=== PATIENT | female | born 1985 ===

== ENCOUNTER 2017-08-18 14:24 | Emergency (ER) | payer OTHER ==
[2017-08-18 14:24] VITALS: BMI 39.2
[2017-08-18 14:40] VITALS: O2SAT 99
[2017-08-18] MEDS ORDERED: Amoxicillin-Clav 875-125 mg Tab PO STA (15:31)
[2017-08-18] MEDS ORDERED: Tobramycin/Dexamethasone (Tobradex) Opth Sol (2.5 ml) OU STA (15:31)
[2017-08-18] MEDS ORDERED: Amoxicillin-Clav 875-125 mg Tab PO ONE (15:57)
--- NOTE | 2017-08-18 16:06 | C.PDOC ---
History Of Present Illness A 32 year old female, who denies any significant past medical history, presents to the emergency department for itchy, burning bilateral eyelids, which began 1 month ago. The patient says she has associated symptoms, which include runny nose and facial pressure. The patient denies any chest pain, shortness of breath , headaches, or any other complaints at this time. Time Seen by Provider: 08/18/17 14:51 Chief Complaint (Nursing): Eye Problem Past Medical History Reviewed: Historical Data, Nursing Documentation, Vital Signs Vital Signs: Last Vital Signs Temp 97.6 F 08/18/17 16:22 Pulse 78 08/18/17 16:22 Resp 18 08/18/17 16:22 BP 135/82 08/18/17 16:22 Pulse Ox 99 08/18/17 19:37 Family History: States: No Known Family Hx - Social History Hx Alcohol Use: No Hx Substance Use: No - Immunization History Hx Tetanus Toxoid Vaccination: No Hx Influenza Vaccination: No Hx Pneumococcal Vaccination: No Review Of Systems Except As Marked, All Systems Reviewed And Found Negative. Cardiovascular: Negative for: Chest Pain Respiratory: Negative for: Shortness of Breath Neurological: Positive for: Headache Physical Exam - Physical Exam Eye(s): bilateral: Other (mild conjuctival injection; no swelling; no foreign body seen on eyelid eversion ) Neck: Normal, Normal ROM Cardiovascular: Rhythm Regular Respiratory: Normal Breath Sounds Gastrointestinal/Abdominal: Normal Exam Back: Normal Inspection Extremity: Normal ROM, No Tenderness Neurological/Psych: Oriented x3, Normal Speech, Normal Cognition ED Course And Treatment O2 Sat by Pulse Oximetry: 99 Medical Decision Making Medical Decision Making: Symptoms are consisted with allergic Rhinitis and conjunctivitis. The patient will be treated with antihistamines. Disposition - Disposition Referrals: Marleny Chavarria MD [Staff Provider] - Disposition: HOME/ ROUTINE Disposition Time: 16:04 Condition: GOOD Additional Instructions: Follow up with the medical doctor within 1-2 days. Return if worsened. Prescriptions: Amoxicillin/Clavulanate [Augmentin 875 MG-125 MG] 1 tab PO BID #14 tab Cetirizine HCl [Zyrtec Allergy] 10 mg PO DAILY #20 sgl Mometasone Furoate [Nasonex] 17 gm NS DAILY #1 spray.pump predniSONE [Prednisone] 10 mg PO BID #10 tab Instructions: Allergies (ED) Forms: [employer] (Mongolian) Print Language: MAURITANIAN - Clinical Impression Clinical Impression: Allergic conjunctivitis, Sinusitis, Allergic rhinitis - Scribe Statement The provider has reviewed the documentation as recorded by the Scribe Nargis Oquendo All medical record entries made by the Terrenceibe were at my direction and personally dictated by me. I have reviewed the chart and agree that the record accurately reflects my personal performance of the history, physical exam, medical decision making, and the department course for this patient. I have also personally directed, reviewed, and agree with the discharge instructions and disposition.
[2017-08-18 16:23] VITALS: BP 135/82; PULSE 78; RESP 18; TEMP 97.6
== END 2017-08-18 16:23 | disposition home or self-care (01) ==
LOC: C.ER 14:24
DX: J30.9 Allergic rhinitis, unspecified (principal); J32.9 Chronic sinusitis, unspecified; H10.13 Acute atopic conjunctivitis, bilateral

== ENCOUNTER 2018-09-08 05:31 | Emergency (ER) | payer SELFPAY ==
[2018-09-08 05:31] VITALS: BMI 39.2
--- NOTE | 2018-09-08 06:10 | C.PDOC ---
History Of Present Illness 33 year old female presents to the ED c/o headache, left shoulder, elbow, low back and right middle finger pain. Patient reports she fell on Sunday. Patient denies LOC, visual changes, nausea, vomit, dizziness, rash, weakness, numbness, CP, SOB, abdominal pain. Time Seen by Provider: 09/08/18 05:45 Chief Complaint (Nursing): Headache History Per: Patient History/Exam Limitations: no limitations Onset/Duration Of Symptoms: Days (3) Current Symptoms Are (Timing): Still Present Quality: "Pain" Recent travel outside of the [place]: No Additional History Per: Patient Past Medical History Reviewed: Historical Data, Nursing Documentation, Vital Signs Vital Signs: Last Vital Signs Temp 97.6 F 09/08/18 05:38 Pulse 71 09/08/18 05:38 Resp 15 09/08/18 05:38 BP 132/92 H 09/08/18 05:38 Pulse Ox 99 09/08/18 05:38 - Medical History PMH: No Chronic Diseases Surgical History: No Surg Hx Family History: States: Unknown Family Hx - Social History Hx Alcohol Use: No Hx Substance Use: No - Immunization History Hx Tetanus Toxoid Vaccination: No Hx Influenza Vaccination: No Hx Pneumococcal Vaccination: No Review Of Systems Constitutional: Negative for: Fever, Chills Eyes: Negative for: Vision Change Cardiovascular: Negative for: Chest Pain Respiratory: Negative for: Cough, Shortness of Breath Gastrointestinal: Negative for: Nausea, Vomiting, Abdominal Pain Musculoskeletal: Positive for: Shoulder Pain, Arm Pain, Back Pain Skin: Negative for: Rash Neurological: Positive for: Headache. Negative for: Weakness, Numbness, Dizz iness Physical Exam - Physical Exam Appears: Non-toxic, No Acute Distress Skin: Normal Color, Warm, Dry Head: Atraumatic, Normacephalic Eye(s): bilateral: Normal Inspection, PERRL, EOMI Oral Mucosa: Moist Neck: Normal ROM, No Midline Cervical Tenderness, Supple Chest: Symmetrical, No Tenderness Cardiovascular: Rhythm Regular Respiratory: Normal Breath Sounds, No Rales, No Rhonchi, No Wheezing Gastrointestinal/Abdominal: Soft, No Tenderness, No Guarding, No Rebound Back: Paraspinal Tenderness (lower back) Extremity: Normal ROM, Tenderness (left elbow, left shoulder, right 3rd finger), Capillary Refill (< 2 seconds), No Deformity, No Swelling, Other (abrasion to right 3rd finger) Pulses: Left Radial: Normal, Right Radial: Normal Neurological/Psych: Oriented x3, Normal Speech, Normal Cognition, Normal Motor, Normal Sensation Gait: Steady ED Course And Treatment O2 Sat by Pulse Oximetry: 99 (ON RA) Pulse Ox Interpretation: Normal - Other Rad Left elbow X-Ray X-Ray: Interpreted by Me, Viewed By Me Left shoulder X-Ray X-Ray: Interpreted by Me, Viewed By Me Right hand X-Ray X-Ray: Interpreted by Me, Viewed By Me LS Spine X-Ray X-Ray: Interpreted by Me, Viewed By Me Progress Note: Plan: - CT head. - Ultram 50 mg PO. - Left elbow X-Ray. - Right Hand X-Ray. - Ls Spine X-Ray. - Left shoulder X-Ray Disposition - Disposition Disposition Time: 06:57 Condition: STABLE Forms: [employer] (Gibraltarian) - Clinical Impression Clinical Impression: Headache, Multiple contusions - PA / ATTENDANCE OFFICER / Resident Statement MD/DO has reviewed & agrees with the documentation as recorded. - Scribe Statement The provider has reviewed the documentation as recorded by the Scribe Jake Macias All medical record entries made by the Scribe were at my direction and personally dictated by me. I have reviewed the chart and agree that the record accurately reflects my personal performance of the history, physical exam, medical decision making, and the department course for this patient. I have also personally directed, reviewed, and agree with the discharge instructions and disposition. Physician Patient Turnover Patient Signed Over To: Rachel Edmond Handoff Comments: Ct head, Xrays, re-evaluation
[2018-09-08 06:52] VITALS: BP 117/81; PULSE 59; RESP 16; TEMP 98.5
[2018-09-08 06:57] VITALS: O2SAT 99
--- NOTE | 2018-09-08 10:18 | CT ---
Date of service: 09/08/2018 PROCEDURE: CT HEAD WITHOUT CONTRAST. HISTORY: fall COMPARISON: None available. TECHNIQUE: Axial computed tomography images were obtained through the head/brain without intravenous contrast. Radiation dose: Total exam DLP = 1175.74 mGy-cm. This CT exam was performed using one or more of the following dose reduction techniques: Automated exposure control, adjustment of the mA and/or kV according to patient size, and/or use of iterative reconstruction technique. FINDINGS: HEMORRHAGE: No intracranial hemorrhage. BRAIN: No mass effect or edema. No atrophy or chronic microvascular ischemic changes. VENTRICLES: Unremarkable. No hydrocephalus. CALVARIUM: Unremarkable. PARANASAL SINUSES: Unremarkable as visualized. No significant inflammatory changes. MASTOID AIR CELLS: Unremarkable as visualized. No inflammatory changes. OTHER FINDINGS: None. IMPRESSION: Normal CT of the Head.
--- NOTE | 2018-09-08 14:15 | RAD ---
Date of service: 09/08/2018 PROCEDURE: Radiographs of the Left Shoulder HISTORY: fall COMPARISON: No prior. FINDINGS: BONES: Normal. No fracture. JOINTS: Normal. Glenohumeral and acromioclavicular joints preserved. No osteoarthritis. SOFT TISSUES: Normal. OTHER FINDINGS: None. IMPRESSION: Normal radiographs of the left shoulder.
--- NOTE | 2018-09-08 14:22 | RAD ---
Date of service: 09/08/2018 PROCEDURE: Radiographs of the Lumbar Spine. HISTORY: fall COMPARISON: No prior. FINDINGS: BONES: Normal alignment. No listhesis. No fracture. DISC SPACES: Unremarkable. OTHER FINDINGS: None. IMPRESSION: Unremarkable radiographs of the lumbar spine.
--- NOTE | 2018-09-08 14:23 | RAD ---
Date of service: 09/08/2018 PROCEDURE: Radiographs of the left elbow. HISTORY: fall COMPARISON: No prior. FINDINGS: BONES: Normal. No fracture. JOINTS: Normal. No osteoarthritis. SOFT TISSUES: Normal. JOINT EFFUSION: None. OTHER FINDINGS: None IMPRESSION: Unremarkable radiographs of the left elbow.
--- NOTE | 2018-09-08 14:24 | RAD ---
Date of service: 09/08/2018 PROCEDURE: Right middle finger radiographs. HISTORY: fall COMPARISON: None. TECHNIQUE: AP radiograph of the right hand, as well as spot oblique and lateral images of right middle finger were obtained. FINDINGS: RIGHT MIDDLE FINGER: Right middle finger normal, without fracture of focal lesion. Remainder of the right hand (as seen on the AP view) grossly unremarkable. JOINTS: Normal. SOFT TISSUES: Normal. OTHER FINDINGS: None. IMPRESSION: Normal right middle finger radiographs.
== END 2018-09-08 08:49 | disposition home or self-care (01) ==
LOC: C.ER 05:31
DX: R51 Headache (principal); S40.012A Contusion of left shoulder, initial encounter; S50.02XA Contusion of left elbow, initial encounter; S30.0XXA Contusion of lower back and pelvis, initial encounter; S60.412A Abrasion of right middle finger, initial encounter; W19.XXXA Unspecified fall, initial encounter